=== PATIENT | male | born 1980 | race Caucasian/White ===

== ENCOUNTER → 2018-04-04 | Outpatient (CLI) | payer BC ==
[~2018-04-04] MED LIST: BACTRIM DS 8001 TAB PO; CEPHALEXIN; MOTRIN 800800 MG/TAB PO; NO HOME MEDICATIONS; SEPTRA DS 8001 TAB PO; VICODIN 5/5001 UDTAB PO
== END ==
LOC: COL.RAD 11:06
DX: N50.9 Disorder of male genital organs, unspecified (principal)

== ENCOUNTER → 2018-08-20 | Outpatient (CLI) | payer BC | LOC: COL.RAD 13:01 | DX: T14.90XD Injury, unspecified, subsequent encounter (principal); S43.61XD Sprain of right sternoclavicular joint, subsequent encounter; S22.31XD Fracture of one rib, right side, subsequent encounter for fracture with routine healing ==